=== PATIENT | female | born 1965 | race Caucasian/White ===

== ENCOUNTER 2025-01-28 18:37 | Observation (INO) ==
[2025-01-28] MEDS: IPRATROPIUM/ALBUTEROL SULFATE 3 ML AMPUL.NEB INH ONE (19:00)
[2025-01-28] MEDS: BUDESONIDE 0.5 MG/2 ML AMPUL.NEB INH ONE (19:00)
--- NOTE | 2025-01-28 19:05 | Emergency Department Note ---
HPI - URI/Sore Throat General Chief Complaint: Upper Respiratory Infection Stated Complaint: sick Time Seen by Provider: 01/28/25 18:56 Source: patient Limitations: no limitations History of Present Illness HPI Narrative: This is a 59 year old female patient that presents to the ER with c/o productive cough and wheezing today. Patient states she has hx of COPD and wears 2 LNC at home normally all the time. Patient denies any chest pain, SOB, back pain, abdominal pain, fever, chills, numbness, tingling, or weakness MD elicited complaint: Reports cough, rhinorrhea and nasal congestion Onset (ago): hour(s) (6) Description of mucous: Reports green Exacerbating factors: Reports nothing Relieving factors: Reports nothing Associated symptoms: Reports cough Related Data Allergies Allergy/AdvReac Type Severity Reaction Status Date / Time iodine Allergy Mild Verified 01/28/25 18:51 Review of Systems Status of ROS 10 or more systems reviewed and unremark able except as noted in history and below Constitutional Denies: fever, chills, change in weight, fatigue, malaise, night sweats or change in sleep pattern Eyes Denies: change in vision, blurry vision, blind spots, light sensitivity, eye discomfort or eye discharge Ears, nose, mouth, and throat Denies: throat pain, neck pain, throat swelling, difficulty swallowing, hoarseness, mouth pain or swelling of lips/tongue Cardiovascular Denies: chest pain, palpitations, edema, swelling of feet/ankles, lightheadedness, shortness of breath with exertion or shortness of breath when lying down Respiratory Reports: cough, wheezing and chest congestion; Denies: shortness of breath, stridor, pain on inspiration, change in phlegm color or coughing up blood Gastrointestinal Denies: abdominal pain, nausea, vomiting, coffee grounds in vomit, heartburn, diarrhea, constipation or bloating Genitourinary Denies: painful urination, urinary frequency, urinary urgency, urinary incontinence, blood in urine, difficulty voiding or decreased urine ouput Musculoskeletal Denies: back pain, neck pain, extremity pain, extremity swelling, joint pain, limited range of motion or joint swelling Integumentary/Breast Denies: rash, itching, redness, skin pain, skin tenderness, skin swelling, sores, new lesion or changing lesion Neurological Denies: headache, numbness in extremities, weakness in extremities, lack of coordination, dizziness, vertigo, confusion or behavioral changes Psychiatric Denies: anxiety, mood swings, panic attacks, change in sleep pattern, hopelessness or loss of interest Endocrine Denies: excessive urination, excessive thirst, fatigue, cold i ntolerance, excessive sweating or flushing Hematologic/Lymphatic Denies: easy bruising, easy bleeding or enlarged lymph nodes Allergic/Immunologic Reports: wheezing; Denies: hives, throat swelling, tongue swelling or facial swelling [facility] Medical History (Updated 01/28/25 @ 18:53 by Marilu Avila RN) On home O2 COPD (chronic obstructive pulmonary disease) Social History Smoking status: current every day smoker Exam Constitutional: normal general appearance and no apparent distress Vital Signs - 24 hr 01/28/25 18:46 01/28/25 19:29 01/28/25 19:37 Temperature 99.6 F Pulse Rate 100 H Respiratory Rate 20 Blood Pressure 144/69 Pulse Oximetry 90 L 98 92 L Oxygen Delivery Me thod Room Air Nasal Cannula Oxygen Flow Rate 2 HENMT: normocephalic, head/scalp atraumatic, hearing grossly normal bilaterally, external ears normal, EACs normal, nasal mucous membranes normal, external nose normal, oral mucous membranes normal and oropharynx normal + nasal congestion Eyes: PERRL, EOMs intact bilaterally, conjunctivae normal and no scleral icterus Neck/C-Spine: visual inspection normal and trachea midline Lymph: no lymphadenopathy noted Chest: inspection of chest normal Respiratory: breath sounds equal bilaterally, normal respiratory effort, auscultation abnormal (diminished breath sound), wheezing noted (scattered wheezes), no rales, no retractions and no use of accessory muscles Cardiovascular: normal heart rate noted, regular rhythm noted, no gallop, no rub, no murmur, no JVD, no clicks, peripheral pulses 2+ throughout, no bruits noted and no additional abnormal heart sounds Gastrointestinal: abdomen normal to inspection, abdomen soft to palpation, nontender to palpation, nontender to percussion, nondistended, normoactive bowel sounds, no hepatosplenomegaly, no masses, no pulsatile mass, no ascites and no hernia Genitourinary: no CVA tenderness Back/Pelvis: spine normal to inspection Extremities: normal to inspection, normal to palpation, no tenderness, full ROM, no joint enlargement and no deformity Neurology: no movement abnormality noted, no focal motor deficit noted, no sensory deficits noted, gait normal, speech normal, coordination normal, no pronator drift noted, no fasciculations noted and GCS normal Psychiatry: mental status grossly normal, oriented x3, thought process normal, cooperative and affect normal Skin: skin color normal Course Course Hospital Course: 2041: LS still with diffuse wheezing after meds and nebs, due to ongoing wheezing and congestion and the continue demand for O2 will admit patient to the medical floor for further evaluation and treatment Vital Signs Vital signs: Vital Signs Temperature 99.6 F 01/28/25 18:46 Pulse Rate 100 H 01/28/25 18:46 Respiratory Rate 20 01/28/25 18:46 Blood Pressure 144/69 01/28/25 18:46 Pulse Oximetry 90 L 01/28/25 18:46 Oxygen Delivery Method Room Air 01/28/25 18:46 Temperature 99.6 F 01/28/25 18:46 Pulse Rate 100 H 01/28/25 18:46 Respiratory Rate 20 01/28/25 18:46 Blood Pressure 144/69 01/28/25 18:46 Pulse Oximetry 92 L 01/28/25 19:37 Oxygen Delivery Method Nasal Cannula 01/28/25 19:37 Oxygen Flow Rate 2 01/28/25 19:37 MDM - URI/Sore Throat Differential Diagnosis Upper Respiratory Differential Diagnosis: upper respiratory infection, viral infection and bronchitis Medical Records MDM Medical Records Attestation: I reviewed the patient's medical records. Lab Data Attestation: I reviewed the patient's lab results. Labs: Lab Results 01/28/25 Range/Units 19:08 WBC 14.1 H (4.3-9.3) K/uL RBC 4.5 (4.00-5.50) M/uL Hgb 13.2 (12.5-15.8) gm/dL Hct 38.6 (35.9-46.7) % MCV 85.7 (81.0-93.7) fl MCH 29.2 (27.6-32.2) pg MCHC 34.1 (33.1-35.3) g/dl RDW 16.2 H (11.4-14.2) % Plt Count 277 (152-353) K/uL MPV 8.0 (6.9-10.8) fl Gran % 78.0 H (47.8-71.3) % Lymph % (Auto) 13.3 L (20.0-43.0) % [place] % (Auto) 5.5 (3.6-9.8) % Eos % (Auto) 2.5 (0.4-2.8) % Baso % (Auto) 0.7 (0.1-0.85) Lymph # (Auto) 1.9 (1.1-3.1) [place] # (Auto) 0.8 L (1.1-3.1) Eos # (Auto) 0.4 H (0.0-0.2) Baso # (Auto) 0.1 (0.0-0.1) Absolute Gran (auto) 11.0 H (2.3-6.0) Sodium 133 L (136-145) mmol/L Potassium 4.1 (3.6-5.2) mmol/L Chloride 96.0 L (98-107) mmol/L Carbon Dioxide 27 (21-32) mmol/L Anion Gap 10.0 (4-14) mEq/L BUN 10 (7-18) mg/dL Creatinine 0.8 (0.6-1.3) mg/dL Estimated GFR 85.9 (>59.9) Glucose 94 (70-110) mg/dL Calcium 8.5 (8.5-10.1) mg/dL Total Bilirubin 0.87 (0.0-1.0) mg/dL AST 17 (15-37) U/L ALT 22 L (30-65) U/L Alkaline Phosphatase 72 (50-136) U/L Total Protein 7.4 (6.4-8.2) g/dL Albumin 4.0 (3.4-5.0) g/dL Imaging Data Attestation imaging: I have reviewed the pertinent imaging results. My Impression: CXR: negative Discharge Plan Discharge Patient Disposition: Admitted As Observation Condition: Stable Clinical Impression: COPD exacerbation, Bronchitis Time of Disposition: 20:47
[2025-01-28] MEDS ORDERED: METHYLPREDNISOLONE SOD SUCC/PF 125 MG/2 ML VIAL ONE (19:11)
[2025-01-28] MEDS: METHYLPREDNISOLONE SOD SUCC/PF 125 MG/2 ML VIAL IVP ONE (19:12)
[2025-01-28 19:35] LABS: Basophils #(Absolute) Auto 0.1 (0.0-0.1); Basophils%(Percent) Auto 0.7 (0.1-0.85); Eosinophils#(Absolute)Auto 0.4 (0.0-0.2); Eosinophils%(Percent) Auto 2.5 % (0.4-2.8); Hematocrit 38.6 % (35.9-46.7); Mean Corpuscular Volume 85.7 fl (81.0-93.7); Monocytes #(Absolute)- Auto 0.8 (1.1-3.1); Monocytes %(Percent)- Auto 5.5 % (3.6-9.8); Platelet Count 277 K/uL (152-353); White Blood Count 14.1 K/uL (4.3-9.3)
[2025-01-28 19:59] LABS: Potassium 4.1 mmol/L (3.6-5.2)
[2025-01-28] MEDS ORDERED: CEFTRIAXONE SODIUM 1 GM VIAL ONE (20:58)
[2025-01-28] MEDS ORDERED: 0.9 % SODIUM CHLORIDE MB+ 50 ML IV ONE (20:58)
[2025-01-28] MEDS: CEFTRIAXONE SODIUM 1 GM in 0.9 % SODIUM CHLORIDE MB+ 50 ML IV STA (20:58)
[2025-01-28] MEDS ORDERED: ACETAMINOPHEN 500 MG TABLET PO PRN (22:35)
[2025-01-28] MEDS ORDERED: MAGNESIUM, ALUMINUM HYDROXIDE 30 ML ORAL.SUSP PO PRN (22:35)
[2025-01-28] MEDS ORDERED: bisacodyL 10 MG SUPP.RECT PR PRN (22:35)
[2025-01-28] MEDS: IPRATROPIUM/ALBUTEROL SULFATE 3 ML AMPUL.NEB INH SCH (23:21)
[2025-01-29 05:48] LABS: Basophils%(Percent) Auto 0.1 (0.1-0.85); Granulocytes % - Auto 95.3 % (47.8-71.3); Granulocytes#(Absolute)- Auto 13.8 (2.3-6.0); Hematocrit 35.9 % (35.9-46.7); Mean Corpuscular Volume 85.9 fl (81.0-93.7); Monocytes #(Absolute)- Auto 0.1 (1.1-3.1); Monocytes %(Percent)- Auto 0.6 % (3.6-9.8); Platelet Count 246 K/uL (152-353); White Blood Count 14.4 K/uL (4.3-9.3)
[2025-01-29 06:10] LABS: Potassium 3.1 mmol/L (3.6-5.2)
[2025-01-29] MEDS: METHYLPREDNISOLONE SOD SUCC/PF 40 MG/ML VIAL INJ SCH (09:55)
[2025-01-29 10:29] LABS: Base Excess ABG -0.2 mmo1/L (-2-2); PCO2 ABG 37 mmHg (35-45); pH ABG 7.42 (7.35-7.45)
[2025-01-29 10:30] LABS: Oxygen Saturation ABG 90 % (92-100); PO2 ABG 58 mmHg (60-100)
[2025-01-29] MEDS: BUDESONIDE 0.5 MG/2 ML AMPUL.NEB INH ONE (11:16)
[2025-01-29] MEDS: IPRATROPIUM/ALBUTEROL SULFATE 3 ML AMPUL.NEB INH ONE (11:16)
[2025-01-29] MEDS: ONDANSETRON HCL/PF 4 MG/2 ML VIAL IVP ONE (11:18)
[2025-01-29] MEDS: AZITHROMYCIN 500 MG 500 MG in 0.9 % SODIUM CHLORIDE 250 ML IV SCH (11:18)
[2025-01-29] MEDS: POTASSIUM CHLORIDE 20 MEQ TAB.ER.PRT PO ONE (11:18)
[2025-01-29] MEDS: PANTOPRAZOLE SODIUM 40 MG TABLET.DR PO SCH (11:19)
[2025-01-29] MEDS: ENOXAPARIN SODIUM 40 MG/0.4 ML SYRINGE SUBQ SCH (11:19)
[2025-01-29 12:55] VITALS: BP 124/69; PULSE 97; RESP 19; TEMP 98
[2025-01-29] MEDS ORDERED: LORazepam 1 MG TABLET PO PRN (14:00)
[2025-01-29] MEDS: BUDESONIDE 0.5 MG/2 ML AMPUL.NEB INH SCH (15:04)
--- NOTE | 2025-01-29 16:41 | Short Stay Summary ---
H&P: HPI History of Present Illness Chief complaint: COPD exacerbation, hypoxia Narrative: This is a 59-year-old female patient that presents to the ER with c/o productive cough and wheezing today. Patient states she has hx of COPD and wears 2 LNC at home normally all the time. Patient denies any chest pain, SOB, back pain, abdominal pain, fever, chills, numbness, tingling, or weakness. Admitted patient to med/surg for further observation and treatment. Day one of hospital stay, patient has diminished breath sounds this a.m., Rhonchi L>R. Provider to evaluated antibiotics. 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 Patient is requiring 3L O2 NC to maintain pulse ox. Elevated WBC of 14.4, clubbing fingers noted, and missing teeth on front bottom row. Patient left AMA stating, she can do her own breathing treatments at home and she wants a cigarette declined nicotine patch and more ativan. AMA form signed. Review of Systems Status of ROS 10 or more systems reviewed and unremark able except as noted in history and below Constitutional Denies: fever, chills, change in weight, fatigue, malaise, night sweats or change in sleep pattern Eyes Denies: change in vision, blurry vision, blind spots, light sensitivity, eye discomfort or eye discharge Ears, nose, mouth, and throat Denies: throat pain, neck pain, throat swelling, difficulty swallowing, hoarseness, mouth pain, swelling of lips/tongue or vertigo Cardiovascular Denies: chest pain, palpitations, edema, swelling of feet/ankles, lightheadedness, shortness of breath with exertion or shortness of breath when lying down Respiratory Reports: cough, wheezing and chest congestion; Denies: shortness of breath, stridor, pain on inspiration, change in phlegm color or coughing up blood Gastrointestinal Denies: abdominal pain, nausea, vomiting, coffee grounds in vomit, heartburn, diarrhea, constipation, bloating or difficulty swallowing Genitourinary Denies: painful urination, urinary frequency, urinary urgency, urinary incontinence, blood in urine, difficulty voiding or decreased urine ouput Musculoskeletal Denies: back pain, neck pain, extremity pain, extremity swelling, joint pain, limited range of motion or joint swelling Integumentary/Breast Denies: rash, itching, redness, skin pain, skin tenderness, skin swelling, sores, new lesion or changing lesion Neurological Denies: headache, numbness in extremities, weakness in extremities, lack of coordination, dizziness, vertigo, confusion or behavioral changes Psychiatric Denies: anxiety, mood swings, panic attacks, change in sleep pattern, hopelessness or loss of interest Endocrine Denies: excessive urination, excessive thirst, fatigue, cold intolerance, excessive sweating or flushing Hematologic/Lymphatic Denies: easy bruising, easy bleeding or enlarged lymph nodes Allergic/Immunologic Reports: wheezing; Denies: hives, throat swelling, tongue swelling or facial swelling [facility] Medical History (Updated 01/29/25 @ 18:45 by Sarah Guerrero DO) Anxiety Restless leg syndrome Peripheral neuropathy GERD with esophagitis Dementia Hyperlipidemia Hypertension On home O2 COPD (chronic obstructive pulmonary disease) Social History Smoking status: current every day smoker Problems where you live: no known problems Highest level of school completed/degree received: GED or equivalent Gender Identity: female Meds Home Medications and Allergies Home Medications Medication Instructions Recorded Confirmed Type amlodipine 10 mg tablet 10 mg PO DAILY 01/29/25 01/29/25 History atorvastatin 20 mg tablet 20 mg PO BEDTIME 01/29/25 01/29/25 History benzonatate 200 mg capsule 200 mg PO TID 01/29/25 01/29/25 History cetirizine 10 mg tablet 10 mg PO DAILY 01/29/25 01/29/25 History citalopram 20 mg tablet 20 mg PO DAILY 01/29/25 01/29/25 History clonidine HCl 0.1 mg tablet 0.1 mg PO BEDTIME 01/29/25 01/29/25 History cyclobenzaprine 10 mg tablet 10 mg PO Q8H PRN muscle spasm 01/29/25 01/29/25 History donepezil 5 mg tablet 5 mg PO BEDTIME 01/29/25 01/29/25 History losartan 100 1 tab PO DAILY 01/29/25 01/29/25 History mg-hydrochlorothiazide 12.5 mg tablet mirtazapine 45 mg tablet 45 mg PO BEDTIME 01/29/25 01/29/25 History ondansetron HCl 8 mg tablet 8 mg PO Q8H PRN nausea and vomiting 01/29/25 01/29/25 History pantoprazole 40 mg tablet,delayed 40 mg PO DAILY 01/29/25 01/29/25 History release pregabalin 200 mg capsule (Lyrica) 200 mg PO BID 01/29/25 01/29/25 History ropinirole 0.5 mg tablet 0.5 mg PO 1800 01/29/25 01/29/25 History Allergies Allergy/AdvReac Type Severity Reaction Status Date / Time iodine Allergy Mild Verified 01/28/25 18:51 Exam Exam: Patient sitting up on side of bed, agitation noted. Son to patient at bedside at time of exam. Constitutional: abnormal general appearance (dressing and setting up in bed) (disheveled), (chronically ill) and (appears older than stated age), distress noted (mild) and (respiratory), average body habitus, limitations noted (physical limitations) (due to O2 requirement) and alert Vital Signs - 24 hr 01/28/25 18:46 01/28/25 19:29 01/28/25 19:37 Temperature 99.6 F Pulse Rate 100 H Pulse Rate [Left] Respiratory Rate 20 Blood Pressure 144/69 Blood Pressure [Le ft Arm] Pulse Oximetry 90 L 98 92 L Oxygen Delivery Me thod Room Air Nasal Cannula Oxygen Flow Rate 2 Fraction of Inspir ed Oxygen 01/28/25 21:30 01/28/25 22:05 01/28/25 22:35 Temperature 98.5 F Pulse Rate 80 80 Pulse Rate [Left] 78 Respiratory Rate 20 20 20 Blood Pressure 98/59 98/59 Blood Pressure [Le ft Arm] 98/63 Pulse Oximetry 92 L 92 L 92 L Oxygen Delivery Me thod Nasal Cannula Room Air Oxygen Flow Rate 2 Fraction of Inspir ed Oxygen 01/28/25 22:35 01/28/25 22:35 01/28/25 23:22 Temperature 98.5 F Pulse Rate Pulse Rate [Left] 78 Respiratory Rate 20 Blood Pressure Blood Pressure [Le ft Arm] 98/63 Pulse Oximetry 92 L 92 L Oxygen Delivery Me thod Room Air Nasal Cannula Oxygen Flow Rate 2 Fraction of Inspir ed Oxygen 01/28/25 23:22 01/29/25 00:00 01/29/25 00:00 Temperature 97.6 F 97.6 F Pulse Rate Pulse Rate [Left] 75 75 Respiratory Rate 18 18 Blood Pressure Blood Pressure [Le ft Arm] 95/63 95/63 Pulse Oximetry 92 L 95 95 Oxygen Delivery Me thod Nasal Cannula Room Air Room Air Oxygen Flow Rate 3 Fraction of Inspir ed Oxygen 32 01/29/25 04:35 01/29/25 04:35 01/29/25 04:36 Temperature 97.6 F 97.6 F Pulse Rate Pulse Rate [Left] 75 75 Respiratory Rate 16 16 Blood Pressure Blood Pressure [Le ft Arm] 102/58 102/58 Pulse Oximetry 91 L 91 L 95 Oxygen Delivery Me thod Nasal Cannula Nasal Cannula Oxygen Flow Rate 2 2 Fraction of Inspir ed Oxygen 01/29/25 08:00 01/29/25 08:20 01/29/25 11:40 Temperature 98.5 F Pulse Rate Pulse Rate [Left] 82 Respiratory Rate 20 Blood Pressure Blood Pressure [Le ft Arm] 112/71 Pulse Oximetry 91 L 91 L 91 L Oxygen Delivery Me thod Nasal Cannula Oxygen Flow Rate 3 Fraction of Inspir ed Oxygen 01/29/25 12:00 Temperature 98 F Pulse Rate Pulse Rate [Left] 97 H Respiratory Rate 19 Blood Pressure Blood Pressure [Le ft Arm] 124/69 Pulse Oximetry 94 L Oxygen Delivery Me thod Nasal Cannula Oxygen Flow Rate 3 Fraction of Inspir ed Oxygen HENMT: normocephalic, head/scalp atraumatic, hearing grossly normal bilaterally, external ears normal, EACs normal, TMs abnormal, nasal mucous membranes normal, external nose normal, oral mucous membranes abnormal, oropharynx normal and dentition abnormal (dental fracture) + nasal congestion Eyes: PERRL, EOMs intact bilaterally, conjunctivae normal, no scleral icterus and papilledema noted Neck/C-Spine: abnormal to visual inspection, trachea midline, cervical spine nontender, abnormal cervical ROM noted, supple, no meningeal signs, thyroid n ormal and no carotid bruits Lymph: no lymphadenopathy noted and no lymphedema noted Chest: inspection of chest normal and palpation of chest normal Respiratory: breath sounds unequal, abnormal respiratory effort (labored), auscultation abnormal (diminished breath sound), wheezing noted (scattered wheezes), no rales, no retractions and no use of accessory muscles Cardiovascular: heart rate abnormal (tachycardic), regular rhythm noted, no gallop, no rub, no murmur, no JVD, no clicks, peripheral pulses 2+ throughout, no bruits noted and no additional abnormal heart sounds Gastrointestinal: abdomen normal to inspection, abdomen soft to palpation, nontender to palpation, nontender to percussion, nondistended, normoactive bowel sounds, no hepatosplenomegaly, no masses, no pulsatile mass, no ascites and no hernia Genitourinary: no CVA tenderness and bladder normal to palpation Back/Pelvis: no thoracic spine tenderness, lumbar spine tenderness noted, thoracic spine ROM abnormal and lumbar spine ROM abnormal Extremities: abnormal to inspection, normal to palpation, no tenderness, full ROM, no joint enlargement and deformity noted bilateral finger clubbing Neurology: seismograph computer II-XII intact, no movement abnormality noted, no focal motor deficit noted, sensory deficit noted, deep tendon reflexes 2+ bilaterally, gait abnormality noted, speech normal (3 word sentences), coordination normal, no pronator drift noted, no fasciculations noted and GCS normal Psychiatry: mental status grossly normal, oriented x3, thought process abnormality noted, cooperative, affect abnormality noted (agitated), psychomotor abnormality noted (agitated) and (restless) and memory abnormal Feel stressed/tense/nervous/anxious/difficulty sleeping: not at all Skin: skin color normal, no rash, no lesions, ecchymosis noted, no wounds, no lacerations, skin turgor abnormal, no mottling and nails abnormality noted Assessment and Plan Assessment and Plan (1) COPD exacerbation: Code(s): J44.1 - Chronic obstructive pulmonary disease with (acute) exacerbation (2) Hypoxia: Code(s): R09.02 - Hypoxemia (3) SOB (shortness of breath): Code(s): R06.02 - Shortness of breath (4) Nicotine abuse: Code(s): Z72.0 - Tobacco use (5) On home O2: Code(s): Z99.81 - Dependence on supplemental oxygen (6) Hypertension: Qualifiers: Hypertension type: primary hypertension Qualified Code(s): I10 - Essential (primary) hypertension Code(s): I10 - Essential (primary) hypertension (7) Hyperlipidemia: Qualifiers: Hyperlipidemia type: mixed hyperlipidemia Qualified Code(s): E78.2 - Mixed hyperlipidemia Code(s): E78.5 - Hyperlipidemia, unspecified (8) Dementia: Qualifiers: Dementia type: associated with other underlying disease Dementia severity: mild Dementia behavioral or psychological symptom: with mood disturbance Qualified Code(s): F02.A3 - Dementia in other diseases classified elsewhere, mild, with mood disturbance Code(s): F03.90 - Unspecified dementia, unspecified severity, without behavioral disturbance, psychotic disturbance, mood disturbance, and anxiety (9) GERD with esophagitis: Qualifiers: Esophagitis bleeding: without hemorrhage Qualified Code(s): K21.00 - Gastro-esophageal reflux disease with esophagitis, without bleeding Code(s): K21.00 - Gastro-esophageal reflux disease with esophagitis, without bleeding (10) Peripheral neuropathy: Qualifiers: Peripheral neuropathy type: polyneuropathy, other Qualified Code(s): G62.89 - Other specified polyneuropathies Code(s): G62.9 - Polyneuropathy, unspecified (11) Restless leg syndrome: Code(s): G25.81 - Restless legs syndrome (12) Anxiety: Code(s): F41.9 - Anxiety disorder, unspecified (13) Hypokalemia: Code(s): E87.6 - Hypokalemia Plan Patient left AMA oxygen at 2 liters at home needing 3 liters to keep sats better than 90% duo nebs every 4 hours pulmicort 0.5 every 12 hours rocephin 1 gram IV Daily Zithromax 500 mg IV every day solumedrol 40 mg IV every 8 hours lovenox 40 mg SQ daily zofran IV every 4 hours prn lorazepam 1 mg PO every 8 hours prn protonix 40 mg po every day potassium replacement 0.9% NS at 50 ml per hour patient declined nicotine patch and was willing to try ativan to see if she could stay but without T.V. so she could watch her soap opras and night time shows she doesnt feel like it will work. Results Labs Labs: CBC 01/28/25 01/29/25 Range/Units 19:08 05:45 WBC 14.1 H 14.4 H (4.3-9.3) K/uL RBC 4.5 4.2 (4.00-5.50) M/uL Hgb 13.2 12.2 L (12.5-15.8) gm/dL Hct 38.6 35.9 (35.9-46.7) % Plt Count 277 246 (152-353) K/uL Gran % 78.0 H 95.3 H (47.8-71.3) % Lymph % (Auto) 13.3 L 4.0 L (20.0-43.0) % Parker % (Auto) 5.5 0.6 L (3.6-9.8) % Eos % (Auto) 2.5 0.0 L (0.4-2.8) % Baso % (Auto) 0.7 0.1 (0.1-0.85) Lymph # (Auto) 1.9 0.6 L (1.1-3.1) Parker # (Auto) 0.8 L 0.1 L (1.1-3.1) Eos # (Auto) 0.4 H 0.0 (0.0-0.2) Baso # (Auto) 0.1 0.0 (0.0-0.1) Absolute Gran (auto) 11.0 H 13.8 H (2.3-6.0) CMP 01/28/25 01/29/25 19:08 05:45 Sodium 133 L 132 L Potassium 4.1 3.1 L Chloride 96.0 L 98.0 Carbon Dioxide 27 23 BUN 10 13 Creatinine 0.8 0.9 Glucose 94 173 H Calcium 8.5 8.2 L Liver Function 01/28/25 01/29/25 Range/Units 19:08 05:45 Total Bilirubin 0.87 0.44 (0.0-1.0) mg/dL AST 17 13 L (15-37) U/L ALT 22 L 18 L (30-65) U/L Alkaline Phosphatase 72 65 (50-136) U/L Albumin 4.0 3.2 L (3.4-5.0) g/dL ABG ABG results: 01/29/25 10:10 ABG pH 7.42 ABG pCO2 37 ABG pO2 153 ABG HCO3 24.0 ABG Total CO2 25.1 ABG O2 Saturation 90 L ABG Base Excess -0.2 Attestation: I have reviewed the pertinent ABG results. Pulse Oximetry Attestation: I have reviewed the pertinent pulse oximetry results. ECG Attestation: I have reviewed the pertinent ECG results. Imaging Imaging ordered: Chest x-ray Radiologist's impression: Chest X-ray 1 View. Date of Service: 01/28/25 HISTORY: painpain; . TECHNIQUE: AP view. COMPARISON: None . TECHNICAL QUALITY: Satisfactory. FINDINGS: Normal size heart. Mediastinum and hilar regions show no masses or lymphadenopathy. Normal central vascularity. No pulmonary consolidation, masses, pleural fluid, or pneumothorax. No acute bony abnormality. IMPRESSION: No evidence of active cardiopulmonary disease. DS: Providers Provider Date of admission: 01/28/25 20:51 Primary care physician: Gissel Johnson NP Admitting clinician: Renetta Washington Attending physician on admission: Sarah Guerrero Attending physician on discharge: Sarah Guerrero Discharging clinician: Sarah Guerrero Anticipated date of discharge: 01/29/25 DS: Summary Hospital Course Hospital Course: This is a 59-year-old female patient that presents to the ER with c/o productive cough and wheezing today. Patient states she has hx of COPD and wears 2 LNC at home normally all the time. Patient denies any chest pain, SOB, back pain, abdominal pain, fever, chills, numbness, tingling, or weakness. Admitted patient to med/surg for further observation and treatment. Day one of hospital stay, patient has diminished breath sounds this a.m., Rhonchi L>R. Provider to evaluated antibiotics. 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 Patient is requiring 3L O2 NC to maintain pulse ox. Elevated WBC of 14.4, clubbing fingers noted, and missing teeth on front bottom row. Patient left AMA stating, she can do her own breathing treatments at home and she wants a cigarette. AMA form signed. Status at Discharge Overall status at discharge: patient is not back to baseline Time Spent with Patient Time attestation: Total time spent providing and/or coordinating discharge services: Discharge Plan Discharge Disposition: Left Against Medical Advice Condition: Other Anticipated Discharge Date/Time: 01/29/25 16:18 Discharge Medications: No Action clonidine HCl 0.1 mg tablet 0.1 mg PO BEDTIME Patient Comments: TAKE ONE TABLET BY MOUTH EVERY EVENING donepezil 5 mg tablet 5 mg PO BEDTIME Patient Comments: TAKE ONE TABLET BY MOUTH AT BEDTIME benzonatate 200 mg capsule 200 mg PO TID Patient Comments: TAKE ONE CAPSULE BY MOUTH THREE TIMES DAILY NEEDED ondansetron HCl 8 mg tablet 8 mg PO Q8H PRN (Reason: nausea and vomiting) Patient Comments: DISSOLVE ONE TABLET UNDER THE TONGUE EVERY 8 HOURS NEEDED atorvastatin 20 mg tablet 20 mg PO BEDTIME Patient Comments: TAKE ONE TABLET BY MOUTH AT BEDTIME ropinirole 0.5 mg tablet 0.5 mg PO 1800 Patient Comments: TAKE ONE TABLET BY MOUTH ONE TO THREE hours BEFORE bedtime citalopram 20 mg tablet 20 mg PO DAILY Patient Comments: TAKE ONE TABLET BY MOUTH EVERY DAY amlodipine 10 mg tablet 10 mg PO DAILY Patient Comments: TAKE ONE TABLET BY MOUTH EVERY DAY cetirizine 10 mg tablet 10 mg PO DAILY Patient Comments: TAKE ONE TABLET BY MOUTH EVERY DAY losartan-hydrochlorothiazide 100-12.5 mg tablet 1 tab PO DAILY Patient Comments: TAKE ONE TABLET BY MOUTH EVERY DAY pantoprazole 40 mg tablet,delayed release (DR/EC) 40 mg PO DAILY Patient Comments: TAKE ONE TABLET BY MOUTH EVERY DAY cyclobenzaprine 10 mg tablet 10 mg PO Q8H PRN (Reason: muscle spasm) Patient Comments: TAKE ONE TABLET BY MOUTH EVERY 8 HOURS NEEDED Rx Instructions: PATIENT STATED THAT SHE TAKES ONLY BID pregabalin [Lyrica] 200 mg capsule 200 mg PO BID Patient Comments: TAKE ONE CAPSULE BY MOUTH TWICE DAILY mirtazapine 45 mg tablet 45 mg PO BEDTIME Patient Comments: TAKE ONE TABLET BY MOUTH AT BEDTIME Hospital Course: This is a 59-year-old female patient that presents to the ER with c/o productive cough and wheezing today. Patient states she has hx of COPD and wears 2 LNC at home normally all the time. Patient denies any chest pain, SOB, back pain, abdominal pain, fever, chills, numbness, tingling, or weakness. Admitted patient to med/surg for further observation and treatment. Day one of hospital stay, patient has diminished breath sounds this a.m., Rhonchi L>R. Provider to evaluated antibiotics. 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 Patient is requiring 3L O2 NC to maintain pulse ox. Elevated WBC of 14.4, clubbing fingers noted, and missing teeth on front bottom row. Patient left AMA stating, she can do her own breathing treatments at home and she wants a cigarette. AMA form signed. Interventions: MED/SURG & ICU Observation Charge Sheet Last Done: 01/29/25 15:15 Print Language: Z[place]ian Activity Restrictions/Additional Instructions: gave extensive education on the need for more medications and offered nicotine patch and ativan and she declined the patch and ended up leaving AMA with her Forms: Portal/Health Info Access Inst Follow-Ups: Gissel Johnson NP [Primary Care Provider] - 02/14/25 9:45 am Discharge Date/Time: 01/29/25 15:17
[2025-01-29] MEDS ORDERED: CEFTRIAXONE SODIUM 1 GM in 0.9 % SODIUM CHLORIDE MB+ 50 ML IV SCH (21:00)
== END 2025-01-29 15:17 | disposition left against medical advice (07) ==
LOC: ED 18:37 → MS 18:37
PROVIDERS: ADMIT Nurse Practitioner Family; ATTEND Family Medicine
DX: R05.9 Cough, unspecified; G62.89 Other specified polyneuropathies; Z99.81 Dependence on supplemental oxygen; R06.02 Shortness of breath; Z53.29 Procedure and treatment not carried out because of patient's decision for other reasons; J44.1 Chronic obstructive pulmonary disease with (acute) exacerbation; E87.6 Hypokalemia; J40 Bronchitis, not specified as acute or chronic; F02.A3 Dementia in other diseases classified elsewhere, mild, with mood disturbance; R09.02 Hypoxemia; G25.81 Restless legs syndrome; F41.9 Anxiety disorder, unspecified; Z72.0 Tobacco use; K21.00 Gastro-esophageal reflux disease with esophagitis, without bleeding; E78.2 Mixed hyperlipidemia; I10 Essential (primary) hypertension